=== PATIENT | female | born 1990 | race Caucasian/White ===

== ENCOUNTER 2018-02-19 19:04 | Emergency (ER) | payer MEDICAID ==
[2018-02-19 19:09] VITALS: BP 129/81
--- NOTE | 2018-02-19 19:26 | EDPHY ---
HPI/HX/ROS/PE/MDM Narrative: CHIEF COMPLAINT: Neck and jaw pain. HISTORY OF PRESENT ILLNESS: This patient is a 27 year old female with history of TMJ and sleep apnea complaining of neck and jaw pain. She has followed up with a dentist regarding this, but misplaced her mouthguard about two months ago and has had worsening discomfort in her neck and jaw since that time. She has not replaced this due to prohibitively high costs for a custom dental appliance. She has tried to relieve her pain with marijuana, ibuprofen, and Tylenol. Now, none are relieving her discomfort. She states she has episodes of pain so intense "I'm losing my mind". When she woke this morning, she had a headache, left greater than right. She generally self-medicates with marijuana and tried this. However , her pain worsened. She feels that the pain in her neck is making it difficult for her to speak properly or open her mouth fully. Currently, the discomfort radiates from her neck to all her extremities as well. The pain is usually worse in the mornings. Endorses nausea and feeling unbearably hot and cold. She denies fever, chills, chest pain, shortness of breath, palpitations, vomiting, diarrhea, urinary complaints, lightheadedness. REVIEW OF SYSTEMS: A comprehensive 10 system review of systems is otherwise negative aside from elements mentioned in the history of present illness and medical decision making. PAST MEDICAL HISTORY: TMJ. Sleep Apnea. Tonsillectomy. Anxiety, depression. SOCIAL HISTORY: Friend at bedside. Employed. No alcohol use, illicit drug use. No history of opiate or other prescription drug abuse. Dentists: Dr. Hankins and Dr. Fritz. VITAL SIGNS: Reviewed by me GENERAL: Well-developed, well-nourished, resting comfortably in no respiratory distress. HEENT: Atraumatic. Eyes: No icterus, no injection. Mouth: moist mucous membranes. No erythema or lesions. Patient does have popping of the TMJ joints bilaterally. Mild trismus. Neck: supple with no adenopathy. No meningismus. LUNGS: Clear to auscultation bilaterally, no wheezes, rhonchi or rales. CARDIAC: Regular rate and rhythm, no rubs, murmurs or gallops. ABDOMEN: Soft, nontender, nondistended, bowel sounds normal. BACK: No CVA tenderness. EXTREMITIES: No trauma. No edema. Range of motion is normal throughout. NEURO: Alert and oriented, grossly nonfocal. SKIN: Warm and dry, no rash. PSYCHIATRIC: Normal mentation, no agitation. Portions of this note were transcribed by a medical office supervisor. I personally performed a history, physical exam, medical decision making, and confirmed accuracy of information the transcribed note. ED Course: 27 y/o female presents with jaw and neck pain secondary to TMJ. She complains of worsening pain due to loss of her custom dental appliance. Exam is largely unremarkable. The patient does not appear systemically ill. She understands that there is little we can do in the emergency department to relieve her pain manager intermediate, and plans to follow up with her dentist tomorrow. She is primarily concerned regarding her severe pain and requests assistance with pain management. Plan to discharge home in good condition with prescription for Gabapentin for pain relief. I will provide a pre-pack of Garfield as well to take as needed for severe pain. She understands I cannot provide more narcotics and that she needs to follow up with her dental providers as soon as possible for further management. I encouraged her to acquire a generic night mouth guard, available over the counter, for relief until she follows up with her dentists. Return precautions discussed. She agrees with this plan. MDM: After history was obtained, and the physical exam performed, a differential for headache was considered including, but not limited to, tension headache, musculoskeletal source of the headache, TMJ syndrome, migraine headache, headache from dental caries or dental source. - Data Points Medications Given: Discontinued Medications Hydrocodone Bitart/Acetaminophen (Garfield 5/325mg Prepack#6) 1 btl TAKEHOME EDNOW ONE Stop: 02/19/18 19:33 Last Admin: 02/19/18 19:38 Dose: 1 btl Gabapentin (Neurontin) 300 mg PO EDNOW ONE Stop: 02/19/18 19:30 Last Admin: 02/19/18 19:38 Dose: 300 mg General Time Seen by Provider: 02/19/18 19:11 Initial Vital Signs: Initial Vital Signs Temperature (C) 36.3 C 02/19/18 19:05 Heart Rate 75 02/19/18 19:05 Respiratory Rate 16 02/19/18 19:05 Blood Pressure 129/81 H 02/19/18 19:05 O2 Sat (%) 98 02/19/18 19:05 O2 Delivery Mode Room Air Allergies/Adverse Reactions: No Known Allergies Allergy (Unverified 02/19/18 19:08) Home Medications: Medication Instructions Recorded Gabapentin [Neurontin 300 MG (*)] 300 mg PO TID PRN #30 cap 02/19/18 Zoloft 25mg (*) 02/19/18 Departure - Departure Disposition: Home, Routine, Self-Care Clinical Impression: TMJ dysfunction Condition: Good Instructions: Hydrocodone/Acetaminophen (By mouth), Temporomandibular Disorder (ED) Additional Instructions: 1. Take gabapentin as prescribed. 2. Take Garfield as prescribed as needed for severe pain. 3. You may wish to get a night mouth guard, available over the counter. 4. Follow up with your dentist tomorrow. I recommend Ibuprofen (Motrin, Advil) or Naproxen Sodium (Aleve) for pain and anti-inflammatory effects. You may take either one, but do not take both. Your dose is: Ibuprofen 600 mg every 6-8 hours with food. OR Naproxen Sodium (Aleve) 220 mg every 12 hours. Referrals: Tita Velez DO [Primary Care Provider] - As per Instructions Prescriptions: Gabapentin [Neurontin 300 MG (*)] 300 mg PO TID PRN #30 cap PRN Reason: pain Report Scribed for: Kathia Burris Report Scribed by: Marija Daniels Date of Report: 02/19/18 Time of Report: 19:26
[2018-02-19] MEDS ORDERED: GABAPENTIN 300 MG CAP PO ONE (19:29)
[2018-02-19] MEDS ORDERED: HYDROCOD/APAP 5/325 PREPACK#6 BTL TAKEHOME ONE (19:32)
== END 2018-02-19 19:43 | disposition home or self-care (01) ==
DX: M26.69 Other specified disorders of temporomandibular joint (principal); G47.30 Sleep apnea, unspecified

== ENCOUNTER 2018-03-04 17:34 | Emergency (ER) | payer MEDICAID ==
[2018-03-04 17:40] VITALS: BP 119/49
--- NOTE | 2018-03-04 17:58 | EDPHY ---
HPI/HX/ROS/PE/MDM Narrative: CHIEF COMPLAINT: "I'm just having a lot of pain again;" jaw pain/headache HPI: The patient is a 27 y/o female with a history of TMJ pain and sleep apnea arriving with her friend for the second time in the last 2 weeks complaining of waxing and waning headache and jaw pain. Her headache and jaw pain varies in intensity and "moves around a lot" from her occiput to her forehead and shoulders. She's had these symptoms for about 2 months since losing a mouthguard from her dentist. She was seen here 02/20/16 for a similar complaint and received gabapentin and prepack of F[place] at that time, which she reports has been the most helpful. She's also been smoking CBD and weed and using ibuprofen and acetaminophen with only minimal relief. She followed up with her dentist earlier this week to get another mouthguard and had some imaging performed at that time. Since then she's continued to have varying levels of pain. Symptoms today feel similar to her ongoing TMJ-related pain since losing her mouthguard. She says, "why I'm here is to get more effective medication, something more intense." No weakness, paresthesias, dizziness, vision changes, speech difficulty. REVIEW OF SYSTEMS: A comprehensive 10 system review of systems is otherwise negative aside from elements mentioned in the history of present illness. PMH: TMJ pain, sleep apnea, tonsillectomy, anxiety, depression SOCIAL HISTORY: Friend at bedside. Denies drug abuse. 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 Prior medical records reviewed including ED visit 02/19/18 for the same complaint. PHYSICAL EXAM: General:Patient is alert, in no acute distress. Sitting up, smiling. ENT:Eyes are normal to inspection. ENT inspection normal. No meningismus. Neck: Normal inspection. Full range of motion. Respiratory:No respiratory distress. Breath sounds normal bilaterally. Cardiovascular: Regular rate and rhythm. Strong peripheral pulses. Normal cap refill. Abdomen:The abdomen is nontender to palpation. There are no peritoneal signs. Back: Normal to inspection. No tenderness to palpation. Skin: Normal color. No rash. Warm and dry. Extremities: Normal appearance. Full range of motion. Neuro: Oriented x3. Normal motor function. Normal sensory function. ED Course: 27 y/o female who returns for the second time in the last two weeks complaining of [id number] headaches since losing her mouthguard 2 months ago. She is here requesting more pain medication. Her exam is unremarkable. Doubt neurologic or infectious causes. Discussed options for further investigation of her headache including head CT and she feels confident her symptoms are the same as prior and related to her TMJ dysfunction. She is declining further evaluation for this. Plan for treatment with 30mg IM Toradol here and discharge home with script for Toradol and small prepack of F[place]on. She understands we cannot provide further narcotic prescriptions through the ED for this complaint and will need to follow up with her PCP and dentist for further prescription management. Return precautions discussed. - Data Points Medications Given: Discontinued Medications Hydrocodone Bitart/Acetaminophen ([place] 5/325mg Prepack#6) 1 btl TAKEHOME EDNOW ONE Stop: 03/04/18 18:04 Last Admin: 03/04/18 18:08 Dose: 1 btl Ketorolac Tromethamine (Toradol) 30 mg IM EDNOW ONE Stop: 03/04/18 18:03 Last Admin: 03/04/18 18:08 Dose: 30 mg General Time Seen by Provider: 03/04/18 17:40 Initial Vital Signs: Initial Vital Signs Temperature (C) 36.7 C 03/04/18 17:36 Heart Rate 73 03/04/18 17:36 Respiratory Rate 18 03/04/18 17:36 Blood Pressure 119/49 L 03/04/18 17:36 O2 Sat (%) 92 03/04/18 17:36 O2 Delivery Mode Room Air Allergies/Adverse Reactions: No Known Allergies Allergy (Verified 03/04/18 17:36) Home Medications: Medication Instructions Recorded Gabapentin [Neurontin 300 MG (*)] 300 mg PO TID PRN #30 cap 02/19/18 Zoloft 25mg (*) 02/19/18 Ketorolac Tromethamine 10 mg PO Q6H PRN #16 tab 03/04/18 Departure - Departure Disposition: Home, Routine, Self-Care Clinical Impression: Headache Qualifiers: Headache type: other headache syndrome Qualified Code(s): G44.89 - Other headache syndrome Condition: Good Instructions: General Headache (ED) Additional Instructions: 1. Take Toradol as directed. You received a dose of Toradol here today, so you should hold off on further doses until tomorrow. Do not take ibuprofen while using this medication. 2. You've received a small pack of Fulton to use as prescribed when needed for severe pain. This medication is a narcotic. Please be advised the ED cannot provide further narcotic prescriptions for this complaint. 3. You will need to follow up with your dentist and/or PCP for any further prescriptions related to this complaint. 4. Return to the ED for other worsening of condition. Referrals: Tita Velez DO [Primary Care Provider] - As per Instructions Prescriptions: Ketorolac Tromethamine 10 mg PO Q6H PRN #16 tab PRN Reason: Pain/inflammation Report Scribed for: Jose M Edouard Report Scribed by: Anika Le Date of Report: 03/04/18 Time of Report: 17:58 Physician Review and Approval Statement: Portions of this note were transcribed by an ED scribe. I personally performed the history, physical exam, and medical decision making; and confirm the accuracy of the information in the transcribed note.
[2018-03-04] MEDS ORDERED: KETOROLAC 30 MG/1 ML SDV IM ONE (18:02)
[2018-03-04] MEDS ORDERED: HYDROCOD/APAP 5/325 PREPACK#6 BTL TAKEHOME ONE (18:03)
== END 2018-03-04 18:15 | disposition home or self-care (01) ==
DX: R51 Headache (principal); M26.629 Arthralgia of temporomandibular joint, unspecified side; F12.90 Cannabis use, unspecified, uncomplicated
CPT/HCPCS: J1885

== ENCOUNTER 2018-04-05 04:44 | Emergency (ER) | payer MEDICAID ==
[2018-04-05 04:54] VITALS: BP 96/67
--- NOTE | 2018-04-05 05:03 | EDPHY ---
H & P Stated Complaint: pain, poss hemorrhoid, constipated, "occasional" blood in stool x1wk Time Seen by Provider: 04/05/18 05:03 HPI/ROS: HPI CHIEF COMPLAINT: Rectal pain. Possible hemorrhoid HISTORY OF PRESENT ILLNESS: 27-year-old female, otherwise healthy no significant medical history presents emergency room stating that often times she has hard stools and strains. She presents over the past 3-4 days she has had some rectal pain and pain with bowel movement. She denies fever. Denies abdominal pain. She does report some hard stools. Concerned she may have a hemorrhoid. Past Medical History: Denies medical history Past Surgical History: Denies surgical history Social History: Denies drugs alcohol tobacco. Family History: Noncontributory ROS REVIEW OF SYSTEMS: 10 Systems were reviewed and negative with the exception of the elements mentioned in the history of present illness. Exam Constitutional appears well nontoxic no acute distress, triage nursing summary reviewed, vital signs reviewed, awake/alert. Eyes normal conjunctivae and sclera, EOMI, PERRLA. HENT normal inspection, atraumatic, moist mucus membranes, no epistaxis, neck supple/ no meningismus, no raccoon eyes. Respiratory clear to auscultation bilaterally, normal breath sounds, no respiratory distress, no wheezing. Cardiovascular rate normal, regular rhythm, no murmur, no edema, distal pulses normal. Gastrointestinal rectal exam: At the 4 o'clock position there appears to be Ridge small hemorrhoid and possible anal tear. No abscess. No large mass. soft, non-tender, no rebound, no guarding, normal bowel sounds, no distension, no pulsatile mass. Genitourinary no CVA tenderness. Musculoskeletal no midline vertebral tenderness, full range of motion, no calf swelling, no tenderness of extremities, no meningismus, good pulses, neurovascularly intact. Skin pink, warm, & dry, no rash, skin atraumatic. Neurologic awake, alert and oriented x 3, AAOx3, moves all 4 extremities equally, motor intact, sensory intact, CN II-XII intact, normal cerebellar, normal vision, normal speech. Psychiatric normal mood/affect. Heme/Lymph/Immune no lymphadenopathy. Differential Diagnosis: Includes but is not limited to in a particular order hemorrhoid pain, anal fissure, annular tear Medical Decision Making: Plan for this patient recommend Sitz baths. Recommend hemorrhoidal cream. Recommend follow up with surgery as needed. Return precautions discussed with the patient. Return if worsening rectal pain , bloody stool, not doing well. Source: Patient - Personal History LMP (Females 10-55): 15-21 Days Ago Current Tetanus Diphtheria and Acellular Pertussis (TDAP): Yes - Medical/Surgical History Hx Asthma: No Hx Chronic Respiratory Disease: No Hx Diabetes: No Hx Cardiac Disease: No Hx Renal Disease: No Hx Cirrhosis: No Hx Alcoholism: No Hx HIV/AIDS: No Hx Splenectomy or Spleen Trauma: No Other PMH: TMJ, sleep apnea - Social History Smoking Status: Never smoked Constitutional: Initial Vital Signs Temperature (C) 36.7 C 04/05/18 04:50 Heart Rate 79 04/05/18 04:50 Respiratory Rate 18 04/05/18 04:50 Blood Pressure 96/67 L 04/05/18 04:50 O2 Sat (%) 97 04/05/18 04:50 O2 Delivery Mode Room Air Allergies/Adverse Reactions: No Known Allergies Allergy (Verified 04/05/18 04:50) Home Medications: Medication Instructions Recorded Gabapentin [Neurontin 300 MG (*)] 300 mg PO TID PRN #30 cap 02/19/18 Zoloft 25mg (*) 02/19/18 Ketorolac Tromethamine 10 mg PO Q6H PRN #16 tab 03/04/18 Docusate Sodium [Dulcolax Stool 100 mg PO DAILY #14 capsule 04/05/18 Softener] Hydrocortisone/Pramoxine 1 tyrone [place] TID #1 can 04/05/18 [Proctofoam-Hc Foam] Departure - Departure Disposition: Home, Routine, Self-Care Clinical Impression: Hemorrhoids Condition: Good Instructions: Hemorrhoids (ED), Sitz Bath (DC) Additional Instructions: 1. Warm baths 2 to 3 times a day. 2. Hemorrhoidal cream. 3. Return if worse 4. Follow up with surgery as needed. 5. Do not strain. 6. Stool softeners. Referrals: Tita Velez DO [Primary Care Provider] - As per Instructions Noel Judge MD [Medical Doctor] - As per Instructions Prescriptions: Docusate Sodium [Dulcolax Stool Softener] 100 mg PO DAILY #14 capsule Hydrocortisone/Pramoxine [Proctofoam-Hc Foam] 1 tyrone [place] TID #1 can
== END 2018-04-05 05:29 | disposition home or self-care (01) ==
DX: K64.9 Unspecified hemorrhoids (principal)

== ENCOUNTER 2018-04-05 21:30 | Emergency (ER) | payer MEDICAID ==
--- NOTE | 2018-04-05 21:57 | EDPHY ---
H & P Stated Complaint: SEAN FISSURE, increasing pain, constipated Time Seen by Provider: 04/05/18 22:01 HPI/ROS: HPI CHIEF COMPLAINT: Constipation, rectal pain. HISTORY OF PRESENT ILLNESS: Very pleasant 27-year-old female who I just saw last night for annual facial and hemorrhoid. She states that she has been trying to have a bowel movement she has been very constipated. She feels fullness in her rectum. She states that she tried to use the bathroom multiple times was unable to do so. She feels as if she has to have a bowel movement. Denies fever, denies chest pain, denies shortness of breath, denies abdominal pain, denies vomiting. No blood. She was able to pass hard stools Past Medical History: Denies significant medical history Past Surgical History: denies significant surgical history Social History: Denies drugs alcohol tobacco Family History: Noncontributory ROS REVIEW OF SYSTEMS: 10 Systems were reviewed and negative with the exception of the elements mentioned in the history of present illness. Exam Constitutional triage nursing summary reviewed, vital signs reviewed, awake/ alert. Eyes normal conjunctivae and sclera, EOMI, PERRLA. HENT normal inspection, atraumatic, moist mucus membranes, no epistaxis, neck supple/ no meningismus, no raccoon eyes. Respiratory clear to auscultation bilaterally, normal breath sounds, no respiratory distress, no wheezing. Cardiovascular rate normal, regular rhythm, no murmur, no edema, distal pulses normal. Gastrointestinal soft, non-tender, no rebound, no guarding, normal bowel sounds, no distension, no pulsatile mass. Genitourinary no CVA tenderness. Musculoskeletal no midline vertebral tenderness, full range of motion, no calf swelling, no tenderness of extremities, no meningismus, good pulses, neurovascularly intact. Skin pink, warm, & dry, no rash, skin atraumatic. Neurologic awake, alert and oriented x 3, AAOx3, moves all 4 extremities equally, motor intact, sensory intact, CN II-XII intact, normal cerebellar, normal vision, normal speech. Psychiatric normal mood/affect. Heme/Lymph/Immune no lymphadenopathy. Differential Diagnosis: Includes but is not limited to in a particular order in a fissure, hemorrhoids, fecal impaction, constipation Medical Decision Making: Plan for this patient soap veronqiue enema. Head re- examination. Re-evaluation: [id number]: Patient received a soapsuds enema. Is improved. She had a good bowel movement here in feels much better. She would like to be discharged. Recommend she continues to do warm baths. Recommend Proctofoam. Return precautions discussed return if worsening abdominal pain, rectal pain, fever, vomiting she understands. Source: Patient - Personal History LMP (Females 10-55): 15-21 Days Ago Current Tetanus Diphtheria and Acellular Pertussis (TDAP): Yes - Medical/Surgical History Hx Asthma: No Hx Chronic Respiratory Disease: No Hx Diabetes: No Hx Cardiac Disease: No Hx Renal Disease: No Hx Cirrhosis: No Hx Alcoholism: No Hx HIV/AIDS: No Hx Splenectomy or Spleen Trauma: No Other PMH: TMJ, sleep apnea, anal fissure - Social History Smoking Status: Never smoked Constitutional: Initial Vital Signs Temperature (C) 37.0 C 04/05/18 21:40 Heart Rate 99 04/05/18 21:40 Respiratory Rate 20 04/05/18 21:40 Blood Pressure 101/56 L 04/05/18 21:40 O2 Sat (%) 97 04/05/18 21:40 O2 Delivery Mode Room Air Allergies/Adverse Reactions: No Known Allergies Allergy (Verified 04/05/18 21:42) Home Medications: Medication Instructions Recorded Gabapentin [Neurontin 300 MG (*)] 300 mg PO TID PRN #30 cap 02/19/18 Zoloft 25mg (*) 02/19/18 Ketorolac Tromethamine 10 mg PO Q6H PRN #16 tab 03/04/18 Docusate Sodium [Dulcolax Stool 100 mg PO DAILY #14 capsule 04/05/18 Softener] Hydrocortisone/Pramoxine 1 tyrone [place] TID #1 can 04/05/18 [Proctofoam-Hc Foam] Departure - Departure Disposition: Home, Routine, Self-Care Clinical Impression: Constipation Qualifiers: Constipation type: unspecified constipation type Qualified Code(s): K59.00 - Constipation, unspecified Condition: Good Instructions: Constipation (ED) Referrals: Tita Velez DO [Primary Care Provider] - As per Instructions
[2018-04-05 23:09] VITALS: BP 95/67
== END 2018-04-05 23:10 | disposition home or self-care (01) ==
DX: K59.00 Constipation, unspecified (principal); K62.89 Other specified diseases of anus and rectum

== ENCOUNTER 2018-05-25 03:01 | Inpatient (IN) | payer MEDICAID, OTHER ==
--- NOTE | 2018-05-25 03:22 | EDPHY ---
H & P Stated Complaint: MH eval, manic, anxious, not sleeping Source: Patient, Other - Personal History LMP (Females 10-55): Irregular Current Tetanus Diphtheria and Acellular Pertussis (TDAP): Yes - Medical/Surgical History Hx Asthma: No Hx Chronic Respiratory Disease: No Hx Diabetes: No Hx Cardiac Disease: No Hx Renal Disease: No Hx Cirrhosis: No Hx Alcoholism: No Hx HIV/AIDS: No Hx Splenectomy or Spleen Trauma: No Other PMH: TMJ, sleep apnea, anal fissure, amxiety - Social History Smoking Status: Never smoked Time Seen by Provider: 05/25/18 03:22 HPI/ROS: HPI CHIEF COMPLAINT: Meli, pressured speech, not sleeping HISTORY OF PRESENT ILLNESS: 27-year-old female, history depression, presents emergency room by private vehicle with her friend became concerned about her for possible meli. Patient denies history of bipolar disorder however does have a history of depression. Does state that she was suicidal yesterday but not today. Her friend reports that she has been deleting her Facebook account 7 times over the last 24 hr also reports that "Linda Gonzalez has become friends with her." She arrives to the emergency room smiling and laughing has pressured speech. Speaks very rapidly. Appears to be acutely manic. Denies drug use. Denies homicidal or suicidal ideation currently. Friend at bedside is concerned about her mental well being brought her in. States that she has been somewhat paranoid, pressured speech, in doing odd behaviors. Past Medical History: Depression, anxiety Past Surgical History: No recent surgery Social History: denies drugs alcohol tobacco. Family History: Noncontributory ROS REVIEW OF SYSTEMS: 10 Systems were reviewed and negative with the exception of the elements mentioned in the history of present illness. Exam Constitutional triage nursing summary reviewed, vital signs reviewed, awake/ alert. Eyes normal conjunctivae and sclera, EOMI, PERRLA. HENT normal inspection, atraumatic, moist mucus membranes, no epistaxis, neck supple/ no meningismus, no raccoon eyes. Respiratory clear to auscultation bilaterally, normal breath sounds, no respiratory distress, no wheezing. Cardiovascular rate normal, regular rhythm, no murmur, no edema, distal pulses normal. Gastrointestinal soft, non-tender, no rebound, no guarding, normal bowel sounds, no distension, no pulsatile mass. Genitourinary no CVA tenderness. Musculoskeletal no midline vertebral tenderness, full range of motion, no calf swelling, no tenderness of extremities, no meningismus, good pulses, neurovascularly intact. Skin pink, warm, & dry, no rash, skin atraumatic. Neurologic awake, alert and oriented x 3, AAOx3, moves all 4 extremities equally, motor intact, sensory intact, CN II-XII intact, normal cerebellar, normal vision, normal speech. Psychiatric pressured speech, laughing, smiling, rapid speech appears manic Heme/Lymph/Immune no lymphadenopathy. Differential Diagnosis: Includes but is not limited to in a particular order underlying mood disorder, bipolar disorder, schizophrenia, acute psychosis, acute meli. Medical Decision Making: Plan for this patient blood draw for medical clearance , urine drug screen, I will placed on M1 hold due to her mental state. She will need mental health evaluation. 1 mg p.o. Ativan ordered. Re-evaluation: 0700: No acute events overnight patient resting comfortably. 1 mg Ativan ordered earlier in given. Patient signed over at 7:00 a.m. Shift change to Dr. Rogers. Patient is getting mental evaluation at this time 7:00 a.m.. (Silvio Zimmer) Constitutional: Initial Vital Signs Temperature (C) 36.7 C 05/25/18 03:04 Heart Rate 101 H 05/25/18 03:04 Respiratory Rate 18 05/25/18 03:04 Blood Pressure 114/76 05/25/18 03:04 O2 Sat (%) 97 05/25/18 03:04 O2 Delivery Mode Room Air Allergies/Adverse Reactions: No Known Allergies Allergy (Verified 05/25/18 03:03) Home Medications: Medication Instructions Recorded Cyclobenzaprine [Flexeril 10 MG 10 mg PO HS PRN 05/25/18 (*)] Propranolol HCl [Inderal 20mg (*)] 20 - 40 mg PO DAILY PRN 05/25/18 Sertraline HCl [Zoloft 50mg (*)] 50 mg PO DAILY 05/25/18 Medical Decision Making Care Turn Over: I assumed care of this patient from Dr. Zimmer at 7:00 a.m.. She underwent evaluation and at 8:30 a.m. I was notified that she will be transferred to [address] [place] [address]. EMTALA completed. Transfer will be arranged. (Carmina Rogers) - Data Points Laboratory Results: Laboratory Results 05/25/18 04:00 05/25/18 04:00 05/25/18 05/25/18 04:00 04:00 Hemoglobin A1c Pending Estim Average Glucose Pending Total Bilirubin 0.4 mg/dL mg/dL (0.1-1.4) Conjugated Bilirubin 0.2 mg/dL mg/dL (0.0-0.5) Unconjugated Bilirubin 0.2 mg/dL mg/dL (0.0-1.1) AST 17 IU/L IU/L (14-46) ALT 22 IU/L IU/L (9-52) Alkaline Phosphatase 75 IU/L IU/L (38-126) Total Protein 7.9 g/dL g/dL (6.3-8.2) Albumin 4.7 g/dL g/dL (3.5-5.0) Triglycerides 54 mg/dL mg/dL (35-135) Cholesterol 109 mg/dL L mg/dL (140-200) Cholesterol Risk Factr 0.4 (0.2-1.0) LDL Cholesterol, Calc 50 mg/dL L mg/dL (60-100) LDL Risk Factor 0.4 (0.2-1.0) VLDL Cholesterol 11 mg/dL mg/dL (8-25) Non-HDL Cholesterol 61 mg/dL L mg/dL (90-129) HDL Cholesterol 48 mg/dL mg/dL (40-75) LDL/HDL Ratio 1.05 RATIO RATIO (1.00-3.22) Cholesterol/HDL Ratio 2.27 RATIO RATIO (1.00-4.44) Medications Given: Acetaminophen (Tylenol) 650 mg PO Q4HRS PRN PRN Reason: Pain, Mild Stop: 11/21/18 13:34 Last Admin: 05/25/18 20:30 Dose: 650 mg Lorazepam (Ativan) 0.5 - 1 mg PO Q6HRS PRN PRN Reason: Anxiety, Able to Take PO Stop: 11/21/18 13:34 Last Admin: 05/26/18 08:24 Dose: 1 mg Discontinued Medications Lorazepam (Ativan) 1 mg PO EDNOW ONE Stop: 05/25/18 03:30 Last Admin: 05/25/18 04:00 Dose: 1 mg Departure - Departure Disposition: [facility] IP Clinical Impression: Acute psychosis, Meli Condition: Good
[2018-05-25] MEDS ORDERED: LORazepam 1 MG TAB PO ONE (03:29)
[2018-05-25 04:29] LABS: PLATELET COUNT 250 10^3/uL (150-400)
--- NOTE | 2018-05-25 09:02 | ASMTTCLDSP ---
TLC Discharge Disposition Disposition: Answers: Admit Disposition Notes: Notes: In consultation with [facility] ED Physician, Carmina Rogers MD and on-call [employer], Maycol Foster both concurred that pt appears to meet 27-65 criteria regarding psychiatric hospitalization as pt appears to be at risk of harm to self due to a mental illness condition. Pt was given the 3[facility] prohibited belongings list while in the ED. Discharge Concerns/Recommendations: Notes: Pt will be admitted to [facility] Was patient given the Answers: Yes Inpatient Behavioral Health Prohibited Belongings List while in the ED? For inpatient Maycol Gomez admission, the following psychiatrist agreed to accept patient for admission to Behavioral Health ([facility]): Type of Hold: Answers: M1/72-hour Hold Hold initiated by: Answers: ED Physician Date Signed: 05/25/2018 09:02 AM Electronically Signed By:Lisa Queen
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
--- NOTE | 2018-05-25 10:14 | PDCONSULT ---
Document Advisor Note: Chief complaint: "I had a suicidal thought yesterday" HPI: This is a 27yo F with a history of depression and anxiety who presents at the urging of her friends and roommate due to concerns for manic behavior. She reportedly has been acting more erratic for the last few days. She had one suicidal thought yesterday and spoke with a friend about this and those ideations resolved. She currently denies SI or HI. She denies any recent fevers , chills, weight loss, sweats, cough, shortness of breath, rashes, neck stiffness, nausea, vomiting, diarrhea. She has been taking 50mg of sertraline daily (reduced from 100mg a few months ago). She states that she knows that she "needs help." In the ED, she was noted to be demonstrating manic features with pressured speech and agitation. An M1 hold was placed and she will be admitted over at the [facility]. Past Medical History: TMJ, anal fissure/hemorrhoid, depression, anxiety Past Surgical History: tonsillectomy Medications: sertraline 50mg daily Allergies: NKDA Social History: Lives with male roommate, who is in room. Denies tobacco, etoh, illicits. Family History: none pertinent ROS: 10 point review of systems negative except as outlined in HPI. Vitals: Temp 36.7, BP 114/76, HR 101, RR 18, O2 97% on room air Physical Exam: gen - rapid speech, intermittently agitated but at other times pleasant; heent - no thyromegaly or thyroid nodules; eyes - no ophthalmous or lid lag; cv - tachycardic without m/r/g; lungs - clear; abdomen - soft without organomegaly; skin - no rashes; neuro - no focal deficits; psych - as above Labs: Reviewed. CBC, BMP normal. Negative beta HCG. Utox + for marijauana. Etoh negative. Assessment: 27yo F with depression/anxiety here with symptoms consistent with acute meli. Plan: 1. Acute manic episode - M1 hold placed, plan to admit at [facility] - This appears to be her first episode of such - Check TSH 2. Tachycardia: Regular on exam - Likely driven by #1 - Very low concern for PE, no indication for CTA chest 3. Depression/anxiety: On sertraline at home, continue per psych. 4. Hemorrhoids: Hemoglobin level is normal, not active issue. VTE ppx: ambulation Diet: regular Code: full Dispo: Admit under M1 hold at [facility].
[2018-05-25] MEDS ORDERED: MAG HYDROX/AL HYDROX/SIMETH 30 ML UDCUP PO PRN (13:35)
[2018-05-25] MEDS: ACETAMINOPHEN 325 MG TAB PO PRN (20:30)
[2018-05-26] MEDS: LORazepam 0.5 MG TAB PO PRN (08:24)
--- NOTE | 2018-05-26 13:48 | ASMTBHMTP ---
Master Treatment Plan Master Treatment Plan Answers: Mood Instability without for: Psychosis Date: 05/26/2018 Diagnosis on Admission: Generalized Anxiety Disorder 300.02 Expected length of stay: 3-5 Days Reason for admission: Notes: Per TLC Evaluation - Pt. is a 27 year old single, Duc/ female who self presented to the [facility] ED with a friend due to concerns of meli. Pt. has a hx of depression but never diagnosed with bipolar disorder. She reported upon arrival that 2 days ago she was experiencing suicidal thoughts. Pt. had denied SI when presenting initially to the ED. Upon arrival it was noted pt had pressured speech and was speaking rapidly. Pt. presented to the ED at 03:31. Her TLC evaluation was started at 06:15am on 05/25/18. Pt. was placed on a M1 hold by ED Physician due to her mental stated. Pt. was given 1 mg of Ativan upon arrival. Pt's utox was positive for marijuana. Pt. has never seen a psychiatrist. Her medication were prescribed by her PCP, Tita Velez MD. Pt. had reported she started taking Zoloft a few years ago. Patient's stated presenting problems: Notes: Pt. declined to respond Patient's goals for treatment: Notes: Pt. declined to respond Patient's strengths: Notes: Pt. declined to respond Identify supports outside of hospital: Notes: Pt. declined to respond Discharge criteria: Notes: Patient will demonstrate more stable mood by discharge. Initial disposition plan/considerations: Notes: Pt. declined to respond Master Treatment Plan Required Signatures Psychiatrist signature: Answers: Eric Waite MD: RN on-shift signature: Answers: RN: Patient signature: Answers: Patient: Date Signed: 05/26/2018 01:47 PM Electronically Signed By:Mar Machuca
--- NOTE | 2018-05-26 14:17 | ASMTCMCOM ---
CM Note CM Note Notes: Pt requested to be called "Christina". Pt. refused to speak with CC. Pt. needed to be redirected a few times this morning from standing in a staff only area. Pt. is withdrawn to her room. Staff report pt. sleeping 3.5 hours and not taking any medications at this time. Date Signed: 05/26/2018 02:16 PM Electronically Signed By:Mar Machuca
--- NOTE | 2018-05-26 17:49 | BAPA ---
DATE OF SERVICE: 05/26/2018 CHIEF COMPLAINT: "Maycol wanted me to come in because I was asking too strongly. I wanted to prove to him I wasn't losing my mind. Many things are stressful, which has to do with honesty and boundaries." HISTORY OF PRESENT ILLNESS: The patient is a 27-year-old, single, Duc female, who self-presented to the [facility] ED with her friend, Maycol, at his request. Maycol was concerned that the patient had been acting strangely and was engaging in bizarre behavior and making strange statements. The patient has a history of depression and anxiety. Previously prescribed sertraline for depression, and propranolol p.r.n. for anxiety. The patient told the it project lead in the emergency department that 2 days prior to her ED visit, she had been experiencing suicidal thoughts. However, she denied having thoughts, plans, or intents to hurt herself or anyone else, when she was evaluated in the emergency department. The ED physician who evaluated the patient noted that the patient had pressured speech and racing thoughts. [facility] it project lead said that she was speaking rapidly. However, when this MD saw the patient on the inpatient [facility] Unit on [address] [place] [address], she was extremely guarded, defensive, withdrawn, isolating. She was sitting on the floor in the starr wearing a hoodie with the lopez pulled up over her face, downcast gaze, not making eye contact or looking at anyone else on the unit. She was wrapped in a blanket. Initially, she did not want to engage with the MD, did not look up when he approached her, refused to answer any questions, then she would shake her head yes or no to some general questions. Eventually, the patient did start speaking more spontaneously and fluently. She did answer questions appropriately. Asked the MD his name, ask for the MD's full name. Said "thank you. It's nice to me you. " Patient also was able to list 2 of her medications, including sertraline and propranolol. Gave accurate doses and dosing schedules for both medications. So , it seemed that the patient's initial presentation was due to selective mutism , and not due to an inability to formulate thoughts. There was no evidence of thought blocking, although she does seem to still be paranoid and somewhat guarded and unwilling to fully engage staff or MD in conversation. When MD asked the patient, she denied experiencing auditory or visual hallucinations. She denied feeling fearful, scared, or paranoid. She denied intrusive thoughts , ideas of reference. She denied any command hallucinations. There was also no evidence of meli. The patient did not have pressured speech or racing thoughts at the time at this MD's evaluation. She did not have increase goal- directed activity, decreased need for sleep. She did not have elevated or elated mood grandiose delusions. She was not engaging in any reckless or impulsive behaviors. PAST PSYCHIATRIC HISTORY: The patient has no prior history of psychiatric hospitalizations. She does have history of some counseling in the past, but it is unclear about how long ago she engaged in therapy. She had been diagnosed with depression and anxiety by her PCP, Tita Velez MD, who had been prescribing sertraline and propranolol, for an unknown period of time. The patient admits that she has not been fully compliant with her medications. In fact, when MD ask her how recently she has taken the propranolol, she said it has been greater than a week since she has used it. She said she only ever used it as needed. When the MD asked the patient how often she has been taking her sertraline, she said she takes it "most days," but she also states, "I forget sometimes and miss doses." When MD asked the patient if she has taken the sertraline this past week, she said, "I don't know." The patient denies any prior suicide attempts. She has no history of self-harm behaviors, although she did report to the [facility] it project lead that she does have a history of binge eating and sometimes restricting, but does not give any indication about how recent those behaviors were. ALLERGIES: The patient has no known drug allergies. CURRENT MEDICATIONS: The patient is currently prescribed sertraline 50 mg p.o. daily, unknown last dose; propranolol 20 mg p.o. daily p.r.n., unknown last dose ; Flexeril 10 mg p.o. at bedtime. States that her last dose was on May 18. [facility] records indicate that the patient also reported taking gabapentin 300 mg p.o. 3 times daily p.r.n., but the pharmacy was unable to confirm that prescription. LABS: Were done in the [facility] ED. Her white cell count was 5.97, hemoglobin 14.5, hematocrit 42.6, platelet count 250, sodium 142, potassium 3.5 , chloride 108, BUN 5, creatinine 0.6, glucose 95, calcium 9.9, total bilirubin 0.4, AST 17, ALT 22, alkaline phosphatase 75, total protein 7.9, triglycerides 54, cholesterol 109, TSH 1.450. Beta hCG was negative. Urine drug screen was positive for marijuana. Negative for all other drugs of abuse. Ethyl alcohol level was undetected. PAST MEDICAL HISTORY: The patient denies any recent surgeries or medical problems. She does have a prior history of sleep apnea, anal fissure. She had multiple ED visits in 2018, for anal fissure, constipation, neck pain, chronic headaches. SOCIAL HISTORY: The patient's parents were never . Her father lives in [place], she has no contact with him. Her mother and brother live on the [facility]. Patient recently relocated from [place] to [place] a few years ago. She is currently living with a former boyfriend, who is now just her roommate, Maycol. She is single, never , has no children. She states that she has been in a relationship with someone other than Maycol, and that recently ended. The patient graduated from the [employer] with a degree in human ecology , but she is not working currently in a job in her field. She has had 2 [employer] jobs. However, she quit both of them the day prior to admission. 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 FAMILY HISTORY: The patient states her father is an alcoholic. The patient states that she thinks her mother has mental illness, but says that she has never been diagnosed or treated. She denies any other family history of mental illness or substance use. SUBSTANCE USE DISORDER: Patient states that she has been using marijuana for several years. She says that she has been using marijuana more often recently. She says over the past few months, she has been using daily. Says that she has been using multiple times a day. Her roommate admits that she seems to have become more paranoid and to have trouble with impaired reality testing, talking strangely, and engaging in bizarre behavior. According to her roommate , she has been "excessively posting on Facebook with no filter." She also believes that someone had been setting up a fake account in her name. Roommate also says that many of these odd behaviors have been increasing over the past few months, and she started using marijuana on a daily basis. Roommate noted disorganized thinking, impulsive behaviors, such as quitting her job, shaving her head, mistrustful of others, erratic sleep. TRAUMA HISTORY: The patient does not report any history of sexual, physical, or emotional abuse. LEGAL HISTORY: Patient denies any arrests or any legal problems. MENTAL STATUS EXAMINATION: This is a small, petite, female sitting on the floor in the hallway, wearing a hoodie with the lopez pulled up, wrapped in a blanket, avoiding eye contact. She is alert and oriented x1. She is very guarded and withdrawn. She makes poor eye contact. Speech rate and volume are slow and soft. She is initially mute, does not respond to any questions, except by shaking her head, but eventually does start talking in complete sentences. Her intellectual function appears to be average, based upon her educational history and prior report. She denies feeling sad, helpless, hopeless, worthless, or anxious. She denies currently experiencing auditory or visual hallucinations. She denied paranoid delusions, ideas of reference, and bizarre thoughts. However, those are presenting symptoms reported by her roommate, is worsening over the last several months, and especially over the last few days. The patient does not currently have any signs or symptoms of meli. She does not have increase in goal-directed activity, decreased need for sleep, racing thoughts, pressured speech, grandiose delusions, or elevated or elated mood. She denies any thoughts or plans to hurt herself or anyone else. Her thought process is illogical, but difficult to assess due to selective mutism. Her insight and judgment both appear to be impaired, as evidenced by her recent behaviors including shaving her head and quitting her job. IMPRESSION: 1. Substance-induced psychotic disorder. 2. Depression by history. 3. Cannabis use disorder, severe. 4. Lack of social support. Patient recently quit 2 jobs. The patient has not been able to find employment in her professional area. Patient's family lives on the [facility]. She is isolated, lonely. Significant recent increase in marijuana use. PLAN: 1. Admit to the inpatient Behavioral Health Services Unit on an M1 hold. 2. Monitor closely for safety. Patient is not currently exhibiting any signs of unsafe behavior. She is acting appropriately. She denies any thoughts, plans, or intent to hurt herself or anyone else. 3. We will continue to monitor and observe the patient. The patient is withdrawn, guarded, likely is still experiencing paranoid delusions. Per the patient's roommate, he noted significant change in her behavior over the last several months, as she started increased marijuana use to several times a day, when she had not been a heavy marijuana user in the past, according to her roommate, who is her ex-boyfriend. He states that he noticed mood lability, lack of sleep, erratic behaviors, disorganized thinking, impulsivity, mistrust of others, paranoia, obsessive Facebook use, all of which he said occurred the same time that she started smoking marijuana daily. The mood and personality changes, her roommate, Maycol, noticed were correlated with her marijuana use. That is why it is most likely that her current presentation is due to a substance-induced psychotic disorder, and not to an underlying mood or schizophreniform disorder, as she has not exhibited any of these symptoms in the past when she was not smoking marijuana. 4. We will prescribe olanzapine 10 mg p.o. at bedtime to address the residual symptoms of substance-induced psychosis. We will hold all the patient's other medications, as she has not been taking those medications regularly anyway, and she is not currently presenting with symptoms of depression or anxiety. 5. Estimated length of stay is 3-5 days. Hopefully, as the patient does not have access to any mood-altering substances while she is in a controlled environment, her symptoms will kenya as she goes longer without any marijuana in her system. We will continue to prescribe antipsychotic medications, as long as it seems to be beneficial, but it is likely that once the patient's symptoms resolve, she will not need to be maintained on antipsychotic medications, unless the symptoms recur. /[id number]/MODL MTDD
[2018-05-26] MEDS: OLANZapine DISINTEGR 10 MG TAB PO SCH (22:06)
[2018-05-27] MEDS: OLANZapine DISINTEGR 5 MG TAB PO PRN ×2 (01:41→23:49)
[2018-05-27] MEDS: LORazepam 0.5 MG TAB PO PRN ×2 (01:41→23:49)
[2018-05-27] MEDS: MAGNESIUM HYDROXIDE 30 ML UDCUP PO PRN (11:12)
--- NOTE | 2018-05-27 15:32 | ASMTCMCOM ---
CM Note CM Note Notes: Pt. requested to speak inside her room. Pt. reports feeling "okay". Pt. stated she slept "medium". Pt. reports getting enough to eat. Pt. stated she took medication, adding "feel little light headed from not eating". Pt. reports attending groups. Pt. stated she "sometimes feel fear". Pt. stated she does have some paranoia, adding "inabilit to relax". Pt. stated "had a really hard time relaxing in this place" adding "everything here is public". Pt. discussed being on camera all the time. CC informed pt. there are no cameras in her room and showed pt. where the cameras are. Pt. stated she lives with a roommate. Pt. stated she is "learning to feel safe where ever I am." Pt. stated she has " a lot of sadness and grief in my heard" and began to cry. Pt. stated "being here learning to clam down and being at peace". Pt. shared she "feel very vunerable". Pt. denied SI, HI, AVH and paranoia. Pt. repeatedly stated she is trying to be honest with everyone and is willing to talk to anyone on the unit. Pt. presents as alert, very guarded, disorganized, good eye contact, and mostly cooperative. Staff report pt. sleeping 8.5 hours and being medication compliant. Staff report pt. having increased anxiety and crying at times. Date Signed: 05/27/2018 03:31 PM Electronically Signed By:Mar Machuca
--- NOTE | 2018-05-27 17:50 | SOAPPROG ---
SOAP Progress Note Assessment/Plan: Assessment: 27 yo woman came to ED at friend's suggestion b/c she had been acting erratically and doing bizarre things like shaving her hair, quitting 2 jobs and changing Facebook posts > 70 times. Plan: 05/27/18 17:47 1. Patient guarded and defensive. Afraid of cameras in rooms and doesn't want to talk to provider in hallway. 2. Patient refused Olanzapine last night, but took PRN dose at 0141 this AM. 3. Patient had increased sleep (8.5 hrs) after taking Olanzapine dose. 4. Place on [facility] Subjective: Patient very labile, crying and tearful this AM. She also presented very guarded and reluctant to talk to staff d/t fears about being watched and worried there are cameras in her room. This afternoon, patient was less labile and more engaged. She interacted with peers rolling ball down hallway. She also initiated brief conversation with MD after being very withdrawn this AM. Objective: Vital Signs Temp Pulse Resp BP Pulse Ox 36.6 C 73 16 140/83 H 95 05/27/18 06:00 05/27/18 06:00 05/27/18 06:00 05/27/18 06:00 05/27/18 06:00 MSE: Affect: Labile, crying at times, constricted at times Mood: "OK" TP: Disorganized TC: Paucity of speech, denies SI/HI Perception: Denies any AH/VH , internally preoccupied at times Insight/Judgment: Impaired - Time Spent With Patient Time Spent With Patient: 15" - Pending Discharge Pending Discharge Within 24 Hours: No Pending Discharge Within 48 Hours: No ICD10 Worksheet Patient Problems: Problems Problem Status Onset Acute psychosis Acute Gabbi Acute
[2018-05-27] MEDS: OLANZapine DISINTEGR 10 MG TAB PO SCH (21:11)
--- NOTE | 2018-05-28 07:40 | SOAPPROG ---
SOAP Progress Note Assessment/Plan: Assessment: Unspecified Psychosis. Cannabis Use Disorder, Severe. R/O substance induced psychosis. No improvement noted. (see subjective/objective note). Patient is not safe to discharge at this time as patient continues to exhibit signs of psychosis, and express psychosis symptoms. Patient requires continued inpatient care because of current psychosis, and requires inpatient level of care to stabilize in order to no longer be gravely disabled due to mental illness. Due to patients current, acute state (notably paranoia) she is unable to communicate her basic needs and requires direction and prompting from staff to perform ADLs. Patient is unable to communicate her basic needs. Patient exhibits inability to provide for herself, neglecting self-care, withdrawn from social interactions, currently shows inability to maintain any appropriate aspect of personal responsibility as an adult, and no current support system identified for patient to manage functional impairment at lower level of care. Patient could benefit from continued inpatient hospitalization for crisis stabilization, safety, and medication evaluation. Plan: 1. Psychotropic medications: After reviewing options, risks, and benefits patient agrees to continue current medications with following changes: lower Zyprexa to 5 mg po QHS due to orthostatic hypotension after receiving 10 mg po QHS last night. No other medication changes at this time as more time is needed to determine ongoing tolerability and efficacy. Plan is to continue to observe patient for response and side effects from medications, and ongoing monitoring and evaluation. 2. Review with patient informed consent and recommendations for psychotropic medication treatment listed below 3. Labs: no additional labs at this time 4. Therapy: continue milieu and group therapy 5. Further investigation including gathering information from patients relatives and review of past case records to inform treatment plan. 6. Safety/Wellness plan and follow-up outpatient appointments to be established prior to discharge. Next steps are for patient to meet with point of care specialist to plan a safe discharge plan and establish outpatient services for ongoing treatment. 7. Confer with inpatient treatment team regarding treatment plan. 8. Psychosocial stressors addressed through shoe caser 9. Legal status: [facility] 10. Consider discharge next week if patient is in stable condition, safe, and has a safe discharge plan. 11. Substance abuse interventions: cannabis PSYCHOTROPIC MEDICATION TREATMENT INFORMED CONSENT and RECOMMENDATIONS: Review nature of condition, diagnosis, and prognosis. Review nature and purpose of psychotropic medication treatment. Review type of psychotropic medications being ordered. Review risk and benefits of psychotropic medication treatment. Review probable length of time patient will need to take medications. Review risk and benefits of not undergoing psychotropic medication treatment. Review alternative treatments to psychotropic medications. Review psychotropic medications contraindications, drug-drug interactions, side effects, and importance of reporting any side effects to a psychiatric provider or nurse during inpatient hospitalization, and upon discharge to patients psychiatric outpatient provider, primary care provider, or other health occasional caregiver. Review importance of asking a nurse, psychiatric provider, or primary care provider any questions or problems concerning the psychotropic medications. Verify patient understands the information that has been provided, and understands, accepts, and agrees to psychotropic medications. Review patients safety plan and importance of patient to report to staff while hospitalized if patient is ever a danger to self/others, or unable to care for self, and upon discharge, the importance for patient to contact [facility] or [facility], or go to the nearest emergency room, if patient is ever a danger to self/others, or unable to care for self. Recommend that upon discharge patient establish medication management treatment with a psychiatric provider, establishes routine therapy appointments, and follow-up with primary care provider. Verify patient understands and agrees to these recommendations. 05/28/18 07:38 Subjective: Following up with patient for evaluation of psychosis and safety. Patient reports, "Doing so much better. Am here for anxiety and depression, feeling better." Patient expresses the following psychiatric symptoms "some paranoia still about not trusting certain people out there." Patient does not report undesirable side effects from current medications, and agrees to continue current medications. Patient agrees to lower Zyprexa to 5 mg po QHS due to orthostatic hypotension after receiving 10 mg po QHS last night. Objective: Vital Signs Temp Pulse Resp BP Pulse Ox 36.2 C 67 12 105/66 96 05/27/18 23:50 05/28/18 06:00 05/27/18 23:50 05/28/18 06:00 05/28/18 01:40 NURSING REPORT: Consulted with nursing for update on patients progress in treatment. Nurses report patient is not engaged in treatment, is not attending groups, slept 5 hours, expresses the following psychiatric symptoms: paranoia; exhibits the following psychiatric symptoms: paranoid, withdrawn, and guarded; is eating all meals, is agreeable to medications and taking as prescribed with no report of side effects, with no s/s of EPS/akathisia, and denies SI/HI, denies A/V hallucinations, and reports delusions. Nurses report patient has standing by door last night asking to leave, then patient had syncopal episode with low blood pressure. Patient requires prompting and direction from staff for ADLs and is unable to communicate her basic needs. MD REPORT FROM WEEKEND: paranoid, withdrawn, and guarded. MSE: The patient is a well-nourished female looking stated chronological age. Attire is appropriate and dress is casual. Grooming status is appropriate. Ambulation is independent. Gait is normal and coordinated. Posture is normal and relaxed. Eye contact is appropriate. Motor activity is appropriate with purposeful, organized, coordinated movements; with no involuntary movements. Attitude is uncooperative, at times guarded. Patient appears distracted and does not relate well to this interviewer. Language production is spontaneous. R/R/V are normal. Patient reports mood as okay with incongruent and expansive affect. Patients thought process is disorganized, tangential, nonsensical, illogical, and non-linear. Patient does not report suicidal/homicidal thoughts , ideas, or plans. Patient denies auditory, visual hallucinations. Patient reports paranoid delusions. Patient does not appear to be attending to internal stimuli. Patients attention and concentration are poor. Patient is oriented to person, place. Patients insight and judgment poor. SUBSTANCE ABUSE BRIEF INTERVENTION: Brief intervention regarding the risks of cannabis abuse is provided to patient with goal to reduce the risk of harm that could result from the continued use of cannabis, with the general aim to investigate the problem, raise awareness of problem, develop a solution with the patient, recommend a specific change or activity, and motivate the patient toward change. Assess substance abuse behavior and give supportive advice about harm reduction, recommend a reduction in hazardous/at-risk consumption patterns, and facilitate referrals for additional specialized treatment with certified caregiver. Intermediate goal is for the patient to quit and attend outpatient substance abuse treatment. Intervention focus on intermediate goals to allow for more immediate success in the treatment process to keep the patient motivated. Review following with patient: Cannabis use risks: Short- term use: impaired short-term memory, impaired motor coordination, altered judgement, in high doses paranoia and psychosis. Long-term use addiction, diminished life satisfaction and achievement, symptoms of chronic bronchitis, and increased risk of chronic psychosis disorders if predisposition to such disorders. In withdrawal anger, aggression irritability, anxiety and nervousness, decreased appetite or weight loss, restlessness, and sleep difficulties with strange dreams. OUTPATIENT SUBSTANCE ABUSE TREATMENT: Patient referred to outpatient provider and treatment for continued treatment related to substance abuse. - Time Spent With Patient Time Spent With Patient: 15 minutes, met with patient individually. - Pending Discharge Pending Discharge Within 24 Hours: No Pending Discharge Within 48 Hours: No ICD10 Worksheet Patient Problems: Problems Problem Status Onset Acute psychosis Acute Gabbi Acute
[2018-05-28] MEDS: OLANZapine DISINTEGR 5 MG TAB PO SCH (20:15)
[2018-05-29] MEDS: LORazepam 0.5 MG TAB PO PRN ×2 (04:49→10:58)
[2018-05-29] MEDS: ACETAMINOPHEN 325 MG TAB PO PRN ×2 (04:49→08:41)
--- NOTE | 2018-05-29 08:17 | SOAPPROG ---
SOAP Progress Note Assessment/Plan: Assessment: Unspecified Psychosis. Cannabis Use Disorder, Severe. R/O substance induced psychosis. No improvement noted. (see subjective/objective note). Patient is not safe to discharge at this time as patient continues to exhibit signs of psychosis, and express psychosis symptoms. Patient requires continued inpatient care because of current psychosis, and requires inpatient level of care to stabilize in order to no longer be gravely disabled due to mental illness. Due to patients current, acute psychosis she is unable to communicate her basic needs and requires direction and prompting from staff to perform ADLs. Patient exhibits inability to provide for herself, neglecting self-care, withdrawn from social interactions, currently shows inability to maintain any appropriate aspect of personal responsibility as an adult, and no current support system for patient to manage functional impairment at lower level of care. Patient could benefit from continued inpatient hospitalization for crisis stabilization, safety, and medication evaluation. Plan: 1. Psychotropic medications: After reviewing options, risks, and benefits patient agrees to continue current medications. No medication changes at this time as more time is needed to determine ongoing tolerability and efficacy. Plan is to continue to observe patient for response and side effects from medications, and ongoing monitoring and evaluation. 2. Review with patient informed consent and recommendations for psychotropic medication treatment listed below 3. Labs: no additional labs at this time 4. Therapy: continue milieu and group therapy 5. Further investigation including gathering information from patients relatives and review of past case records to inform treatment plan. 6. Safety/Wellness plan and follow-up outpatient appointments to be established prior to discharge. Next steps are for patient to meet with child care associate teacher to plan a safe discharge plan and establish outpatient services for ongoing treatment. 7. Confer with inpatient treatment team regarding treatment plan. 8. Psychosocial stressors addressed through complex case manager 9. Legal status: [facility] 10. Consider discharge next week if patient is in stable condition, safe, and has a safe discharge plan. 11. Substance abuse interventions: cannabis PSYCHOTROPIC MEDICATION TREATMENT INFORMED CONSENT and RECOMMENDATIONS: Review nature of condition, diagnosis, and prognosis. Review nature and purpose of psychotropic medication treatment. Review type of psychotropic medications being ordered. Review risk and benefits of psychotropic medication treatment. Review probable length of time patient will need to take medications. Review risk and benefits of not undergoing psychotropic medication treatment. Review alternative treatments to psychotropic medications. Review psychotropic medications contraindications, drug-drug interactions, side effects, and importance of reporting any side effects to a psychiatric provider or nurse during inpatient hospitalization, and upon discharge to patients psychiatric outpatient provider, primary care provider, or other health child care director. Review importance of asking a nurse, psychiatric provider, or primary care provider any questions or problems concerning the psychotropic medications. Verify patient understands the information that has been provided, and understands, accepts, and agrees to psychotropic medications. Review patients safety plan and importance of patient to report to staff while hospitalized if patient is ever a danger to self/others, or unable to care for self, and upon discharge, the importance for patient to contact [facility] or [facility], or go to the nearest emergency room, if patient is ever a danger to self/others, or unable to care for self. Recommend that upon discharge patient establish medication management treatment with a psychiatric provider, establishes routine therapy appointments, and follow-up with primary care provider. Verify patient understands and agrees to these recommendations. 05/29/18 08:17 Subjective: Following up with patient for evaluation of psychosis and safety. Patient reports, "Not sure what I am thinking right now. Haven't had time to think about thoughts yet." Patient expresses the following psychiatric symptoms "anxious." Patient does not report undesirable side effects from current medications, and agrees to continue current medications. Objective: Vital Signs Temp Pulse Resp BP Pulse Ox 36.6 C 85 15 118/69 99 05/29/18 06:00 05/29/18 06:00 05/29/18 06:00 05/29/18 06:00 05/29/18 06:00 NURSING REPORT: Consulted with nursing for update on patients progress in treatment. Nurses report patient is not engaged in treatment, is not attending groups, slept 8 hours, expresses the following psychiatric symptoms: paranoia; exhibits the following psychiatric symptoms: paranoid, withdrawn, guarded, becomes extremely anxious when asked questions; is eating all meals, is agreeable to medications and taking as prescribed with no report of side effects , with no s/s of EPS/akathisia, and denies SI/HI, denies A/V hallucinations, and reports delusions. Patient requires prompting and direction from staff for ADLs and is unable to communicate her basic needs. MD REPORT FROM WEEKEND: paranoid, withdrawn, and guarded. MSE: The patient is a well-nourished female looking stated chronological age. Attire is appropriate and dress is casual. Grooming status is appropriate. Ambulation is independent. Gait is normal and coordinated. Posture is normal and relaxed. Eye contact is appropriate. Motor activity is appropriate with purposeful, organized, coordinated movements; with no involuntary movements. Attitude is uncooperative, at times guarded. Patient appears distracted and does not relate well to this interviewer. Language production is spontaneous. Rate is hesitant, latency of response is prolonged, monotone, with low volume. Patient reports mood as okay with incongruent and flat affect. Patients thought process is blocked, disorganized, nonsensical, illogical, and non- linear. Patient does not report suicidal/homicidal thoughts, ideas, or plans. Patient denies auditory, visual hallucinations. Patient reports paranoid delusions. Patient does not appear to be attending to internal stimuli. Patients attention and concentration are poor. Patient is oriented to person, place. Patients insight and judgment poor. SUBSTANCE ABUSE BRIEF INTERVENTION: Brief intervention regarding the risks of cannabis abuse is provided to patient with goal to reduce the risk of harm that could result from the continued use of cannabis, with the general aim to investigate the problem, raise awareness of problem, develop a solution with the patient, recommend a specific change or activity, and motivate the patient toward change. Assess substance abuse behavior and give supportive advice about harm reduction, recommend a reduction in hazardous/at-risk consumption patterns, and facilitate referrals for additional specialized treatment with healthcare administration internship. Intermediate goal is for the patient to quit and attend outpatient substance abuse treatment. Intervention focus on intermediate goals to allow for more immediate success in the treatment process to keep the patient motivated. Review following with patient: Cannabis use risks: Short- term use: impaired short-term memory, impaired motor coordination, altered judgement, in high doses paranoia and psychosis. Long-term use addiction, diminished life satisfaction and achievement, symptoms of chronic bronchitis, and increased risk of chronic psychosis disorders if predisposition to such disorders. In withdrawal anger, aggression irritability, anxiety and nervousness, decreased appetite or weight loss, restlessness, and sleep difficulties with strange dreams. OUTPATIENT SUBSTANCE ABUSE TREATMENT: Patient referred to outpatient provider and treatment for continued treatment related to substance abuse. - Time Spent With Patient Time Spent With Patient: 15 minutes, met with patient individually. - Pending Discharge Pending Discharge Within 24 Hours: No Pending Discharge Within 48 Hours: No ICD10 Worksheet Patient Problems: Problems Problem Status Onset Acute psychosis Acute Gabbi Acute
[2018-05-29] MEDS: OLANZapine DISINTEGR 5 MG TAB PO PRN (09:56)
[2018-05-29] MEDS: IBUPROFEN 200 MG TAB PO PRN (13:48)
[2018-05-29] MEDS: MAGNESIUM HYDROXIDE 30 ML UDCUP PO PRN (18:40)
[2018-05-29] MEDS: OLANZapine DISINTEGR 5 MG TAB PO SCH (20:38)
[2018-05-30] MEDS: ACETAMINOPHEN 325 MG TAB PO PRN (04:26)
[2018-05-30] MEDS: LORazepam 0.5 MG TAB PO PRN (04:26)
--- NOTE | 2018-05-30 07:20 | SOAPPROG ---
SOAP Progress Note Assessment/Plan: Assessment: Cannabis Use Disorder, Severe. R/O substance induced psychosis, substance induced mood disorder. No improvement noted. (see subjective/objective note). Patient is not safe to discharge at this time as patient continues to exhibit signs of psychosis, and express psychosis symptoms. Patient requires continued inpatient care because of current psychosis, and requires inpatient level of care to stabilize in order to no longer be gravely disabled due to mental illness. Due to patients current, acute psychosis she is unable to communicate her basic needs and requires direction and prompting from staff to perform ADLs. Patient exhibits inability to provide for herself, neglecting self-care, withdrawn from social interactions, currently shows inability to maintain any appropriate aspect of personal responsibility as an adult, and no current support system for patient to manage functional impairment at lower level of care. Patient could benefit from continued inpatient hospitalization for crisis stabilization, safety, and medication evaluation. Plan: 1. Psychotropic medications: After reviewing options, risks, and benefits patient agrees to continue current medications and agrees to increase Zyprexa Zydis to 10 mg po QHS. No other medication changes at this time as more time is needed to determine ongoing tolerability and efficacy. Plan is to continue to observe patient for response and side effects from medications, and ongoing monitoring and evaluation. 2. Review with patient informed consent and recommendations for psychotropic medication treatment listed below 3. Labs: no additional labs at this time 4. Therapy: continue milieu and group therapy 5. Further investigation including gathering information from patients relatives and review of past case records to inform treatment plan. 6. Safety/Wellness plan and follow-up outpatient appointments to be established prior to discharge. Next steps are for patient to meet with caretaker to plan a safe discharge plan and establish outpatient services for ongoing treatment. 7. Confer with inpatient treatment team regarding treatment plan. 8. Psychosocial stressors addressed through casework manager 9. Legal status: [facility] 10. Consider discharge next week if patient is in stable condition, safe, and has a safe discharge plan. 11. Substance abuse interventions: cannabis PSYCHOTROPIC MEDICATION TREATMENT INFORMED CONSENT and RECOMMENDATIONS: Review nature of condition, diagnosis, and prognosis. Review nature and purpose of psychotropic medication treatment. Review type of psychotropic medications being ordered. Review risk and benefits of psychotropic medication treatment. Review probable length of time patient will need to take medications. Review risk and benefits of not undergoing psychotropic medication treatment. Review alternative treatments to psychotropic medications. Review psychotropic medications contraindications, drug-drug interactions, side effects, and importance of reporting any side effects to a psychiatric provider or nurse during inpatient hospitalization, and upon discharge to patients psychiatric outpatient provider, primary care provider, or other health acute care clinical nurse specialist. Review importance of asking a nurse, psychiatric provider, or primary care provider any questions or problems concerning the psychotropic medications. Verify patient understands the information that has been provided, and understands, accepts, and agrees to psychotropic medications. Review patients safety plan and importance of patient to report to staff while hospitalized if patient is ever a danger to self/others, or unable to care for self, and upon discharge, the importance for patient to contact [facility] or [facility], or go to the nearest emergency room, if patient is ever a danger to self/others, or unable to care for self. Recommend that upon discharge patient establish medication management treatment with a psychiatric provider, establishes routine therapy appointments, and follow-up with primary care provider. Verify patient understands and agrees to these recommendations. 05/30/18 07:19 Subjective: Following up with patient for evaluation of psychosis and safety. Patient reports, "I get nervous talking to people about my problems. I have anxiety, depression now, maybe I have bipolar, I wasn't sleep much the days before I came here, I was sleeping about 2 hours per night for several nights, having lots of anxious thoughts, and one of them was a suicidal thought, and thought it was something worth paying attention to. No longer having suicidal thoughts , not since the day I got here." Patient reports using THC twice a day for 2-3 months, after she got a medical marijuana card. Patient states, "It's possible the reason I am here is due to using cannabis. Maybe triggered me into a more manic or depressive state." Patient expresses the following psychiatric symptoms anxious. Patient does not report undesirable side effects from current medications, and agrees to continue current medications. Patient agrees to increase Zyprexa Zydis to 10 mg po QHS. Objective: Vital Signs Temp Pulse Resp BP Pulse Ox 36.6 C 84 14 109/61 98 05/29/18 06:00 05/30/18 03:55 05/30/18 03:55 05/30/18 03:55 05/30/18 03:55 NURSING REPORT: Consulted with nursing for update on patients progress in treatment. Nurses report patient is not engaged in treatment, is not attending groups, slept 8 hours, expresses the following psychiatric symptoms: paranoia; exhibits the following psychiatric symptoms: paranoid, withdrawn, guarded, becomes extremely anxious when asked questions; is eating all meals, is agreeable to medications and taking as prescribed with no report of side effects , with no s/s of EPS/akathisia, and denies SI/HI, denies A/V hallucinations, and reports delusions. Patient requires prompting and direction from staff for ADLs and is unable to communicate her basic needs. MD REPORT FROM WEEKEND: paranoid, withdrawn, and guarded. MSE: The patient is a well-nourished female looking stated chronological age. Attire is appropriate and dress is casual. Grooming status is appropriate. Ambulation is independent. Gait is normal and coordinated. Posture is normal and relaxed. Eye contact is appropriate. Motor activity is appropriate with purposeful, organized, coordinated movements; with no involuntary movements. Attitude is uncooperative, at times guarded. Patient appears distracted and does not relate well to this interviewer. Language production is spontaneous. Rate is hesitant, latency of response is prolonged, monotone, with low volume. Patient reports mood as okay with incongruent and flat affect. Patients thought process is blocked, disorganized, nonsensical, illogical, and non- linear. Patient does not report suicidal/homicidal thoughts, ideas, or plans. Patient denies auditory, visual hallucinations. Patient reports paranoid delusions. Patient does not appear to be attending to internal stimuli. Patients attention and concentration are poor. Patient is oriented to person, place. Patients insight and judgment poor. SUBSTANCE ABUSE BRIEF INTERVENTION: Brief intervention regarding the risks of cannabis abuse is provided to patient with goal to reduce the risk of harm that could result from the continued use of cannabis, with the general aim to investigate the problem, raise awareness of problem, develop a solution with the patient, recommend a specific change or activity, and motivate the patient toward change. Assess substance abuse behavior and give supportive advice about harm reduction, recommend a reduction in hazardous/at-risk consumption patterns, and facilitate referrals for additional specialized treatment with lawn caretaker. Intermediate goal is for the patient to quit and attend outpatient substance abuse treatment. Intervention focus on intermediate goals to allow for more immediate success in the treatment process to keep the patient motivated. Review following with patient: Cannabis use risks: Short- term use: impaired short-term memory, impaired motor coordination, altered judgement, in high doses paranoia and psychosis. Long-term use addiction, diminished life satisfaction and achievement, symptoms of chronic bronchitis, and increased risk of chronic psychosis disorders if predisposition to such disorders. In withdrawal anger, aggression irritability, anxiety and nervousness, decreased appetite or weight loss, restlessness, and sleep difficulties with strange dreams. OUTPATIENT SUBSTANCE ABUSE TREATMENT: Patient referred to outpatient provider and treatment for continued treatment related to substance abuse. PATIENT'S RESPONSE TO INTERVENTION: "I can definitely handle not using weed if that is what is needed for me to get better." - Time Spent With Patient Time Spent With Patient: 15 minutes, met with patient individually. - Pending Discharge Pending Discharge Within 24 Hours: No Pending Discharge Within 48 Hours: Yes Pending Discharge Date: 06/01/18 Pending Discharge Time: 11:00 ICD10 Worksheet Patient Problems: Problems Problem Status Onset Cannabis use disorder, severe, dependence Acute Cannabis-induced psychotic disorder with delusions Acute Unspecified psychosis Acute
--- NOTE | 2018-05-30 08:45 | ASMTBHDC ---
Notes Note: Notes: CC confirmed follow up out-patient care: Follow up with: [facility] [address] [place] [address] Intake Appt: June 04 (06/04/18) at 2:30pm with Aishwarya at (the above address). Date Signed: 05/30/2018 08:44 AM Electronically Signed By:Trevor Colbert
[2018-05-30] MEDS: OLANZapine DISINTEGR 10 MG TAB PO SCH (20:34)
[2018-05-31] MEDS: IBUPROFEN 200 MG TAB PO PRN (04:25)
[2018-05-31] MEDS: LORazepam 0.5 MG TAB PO PRN (05:22)
[2018-05-31] MEDS: ACETAMINOPHEN 325 MG TAB PO PRN (05:23)
[2018-05-31] MEDS ORDERED: SUMAtriptan 50 MG TAB PO ONE (09:01)
--- NOTE | 2018-05-31 11:36 | SOAPPROG ---
SOAP Progress Note Assessment/Plan: Assessment: Cannabis Use Disorder, Severe. R/O substance induced psychosis, substance induced mood disorder. Improvement noted. (see subjective/objective note). Patient is not safe to discharge at this time as patient continues to exhibit signs of psychosis, and express psychosis symptoms. Patient requires continued inpatient care because of current psychosis, and requires inpatient level of care to stabilize in order to no longer be gravely disabled due to mental illness. Due to patients current, acute psychosis she is unable to communicate her basic needs and requires direction and prompting from staff to perform ADLs. Patient exhibits inability to provide for herself, neglecting self-care, withdrawn from social interactions, currently shows inability to maintain any appropriate aspect of personal responsibility as an adult, and no current support system for patient to manage functional impairment at lower level of care. Patient could benefit from continued inpatient hospitalization for crisis stabilization, safety, and medication evaluation. Plan: 1. Psychotropic medications: After reviewing options, risks, and benefits patient agrees to continue current medications. No medication changes at this time as more time is needed to determine ongoing tolerability and efficacy. Plan is to continue to observe patient for response and side effects from medications, and ongoing monitoring and evaluation. 2. Review with patient informed consent and recommendations for psychotropic medication treatment listed below 3. Labs: no additional labs at this time 4. Therapy: continue milieu and group therapy 5. Further investigation including gathering information from patients relatives and review of past case records to inform treatment plan. 6. Safety/Wellness plan and follow-up outpatient appointments to be established prior to discharge. Next steps are for patient to meet with healthcare educator to plan a safe discharge plan and establish outpatient services for ongoing treatment. 7. Confer with inpatient treatment team regarding treatment plan. 8. Psychosocial stressors addressed through pillowcase maker 9. Legal status: [facility] 10. Consider discharge Monday if patient is in stable condition, safe, and has a safe discharge plan. 11. Substance abuse interventions: cannabis PSYCHOTROPIC MEDICATION TREATMENT INFORMED CONSENT and RECOMMENDATIONS: Review nature of condition, diagnosis, and prognosis. Review nature and purpose of psychotropic medication treatment. Review type of psychotropic medications being ordered. Review risk and benefits of psychotropic medication treatment. Review probable length of time patient will need to take medications. Review risk and benefits of not undergoing psychotropic medication treatment. Review alternative treatments to psychotropic medications. Review psychotropic medications contraindications, drug-drug interactions, side effects, and importance of reporting any side effects to a psychiatric provider or nurse during inpatient hospitalization, and upon discharge to patients psychiatric outpatient provider, primary care provider, or other health medicare compliance auditor. Review importance of asking a nurse, psychiatric provider, or primary care provider any questions or problems concerning the psychotropic medications. Verify patient understands the information that has been provided, and understands, accepts, and agrees to psychotropic medications. Review patients safety plan and importance of patient to report to staff while hospitalized if patient is ever a danger to self/others, or unable to care for self, and upon discharge, the importance for patient to contact [facility] or [facility], or go to the nearest emergency room, if patient is ever a danger to self/others, or unable to care for self. Recommend that upon discharge patient establish medication management treatment with a psychiatric provider, establishes routine therapy appointments, and follow-up with primary care provider. Verify patient understands and agrees to these recommendations. 05/31/18 11:35 Subjective: Following up with patient for evaluation of psychosis and safety. Patient reports, "I feel much better, thinking more clearly." Patient expresses the following psychiatric symptoms anxiety. Patient does not report undesirable side effects from current medications, and agrees to continue current medications. Objective: Vital Signs Temp Pulse Resp BP Pulse Ox 37.6 C 95 16 93/60 L 97 05/31/18 06:00 05/31/18 06:00 05/31/18 06:00 05/31/18 06:00 05/31/18 06:00 NURSING REPORT: Consulted with nursing for update on patients progress in treatment. Nurses report patient is not engaged in treatment, is not attending groups, slept 8 hours, expresses the following psychiatric symptoms: paranoia; exhibits the following psychiatric symptoms: paranoid, withdrawn, guarded, becomes extremely anxious when asked questions; is eating all meals, is agreeable to medications and taking as prescribed with no report of side effects , with no s/s of EPS/akathisia, and denies SI/HI, denies A/V hallucinations, and reports delusions. Patient requires prompting and direction from staff for ADLs and is unable to communicate her basic needs. MSE: The patient is a well-nourished female looking stated chronological age. Attire is appropriate and dress is casual. Grooming status is appropriate. Ambulation is independent. Gait is normal and coordinated. Posture is normal and relaxed. Eye contact is appropriate. Motor activity is appropriate with purposeful, organized, coordinated movements; with no involuntary movements. Attitude is uncooperative, at times guarded. Patient appears distracted and does not relate well to this interviewer. Language production is spontaneous. Rate is hesitant, latency of response is prolonged, monotone, with low volume. Patient reports mood as okay with incongruent and flat affect. Patients thought process is blocked, disorganized, nonsensical, illogical, and non- linear. Patient does not report suicidal/homicidal thoughts, ideas, or plans. Patient denies auditory, visual hallucinations. Patient reports paranoid delusions. Patient does not appear to be attending to internal stimuli. Patients attention and concentration are poor. Patient is oriented to person, place. Patients insight and judgment poor. SUBSTANCE ABUSE BRIEF INTERVENTION: Brief intervention regarding the risks of cannabis abuse is provided to patient with goal to reduce the risk of harm that could result from the continued use of cannabis, with the general aim to investigate the problem, raise awareness of problem, develop a solution with the patient, recommend a specific change or activity, and motivate the patient toward change. Assess substance abuse behavior and give supportive advice about harm reduction, recommend a reduction in hazardous/at-risk consumption patterns, and facilitate referrals for additional specialized treatment with healthcare translator. Intermediate goal is for the patient to quit and attend outpatient substance abuse treatment. Intervention focus on intermediate goals to allow for more immediate success in the treatment process to keep the patient motivated. Review following with patient: Cannabis use risks: Short- term use: impaired short-term memory, impaired motor coordination, altered judgement, in high doses paranoia and psychosis. Long-term use addiction, diminished life satisfaction and achievement, symptoms of chronic bronchitis, and increased risk of chronic psychosis disorders if predisposition to such disorders. In withdrawal anger, aggression irritability, anxiety and nervousness, decreased appetite or weight loss, restlessness, and sleep difficulties with strange dreams. OUTPATIENT SUBSTANCE ABUSE TREATMENT: Patient referred to outpatient provider and treatment for continued treatment related to substance abuse. - Time Spent With Patient Time Spent With Patient: 15 minutes, met with patient individually. 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
[2018-05-31] MEDS: OLANZapine DISINTEGR 10 MG TAB PO SCH (20:08)
[2018-06-01] MEDS: ACETAMINOPHEN 325 MG TAB PO PRN (04:26)
[2018-06-01 06:54] VITALS: BP 99/68
--- NOTE | 2018-06-01 11:51 | BDS ---
REASON FOR ADMISSION: From the ED note dated 05/25/2018, patient presents to the emergency room by private vehicle with a friend. Friend became concerned about the patient's possible meli. Patient denied history of bipolar disorder , however, reported a history of depression. The patient did report being suicidal a day prior to presenting to the emergency department but reported no suicidality upon presentation to the ED on 05/25/2018. The patient's friend reported patient had been exhibiting bizarre behavior, including deleting her Facebook account 7 times over the last 24 hours and also reported delusion of "Linda Carbajal had became friends with her." The patient presented, smiling and laughing, with pressured speech and appeared to be acutely manic at time of presenting to the emergency room. Patient reported being paranoid, pressured speech and reported doing odd behaviors prior to presenting to the emergency room. Patient was admitted involuntarily on an M1 hold due to being gravely disabled due to a mental illness. Patient was admitted for safety, crisis stabilization, and medication management. ADMITTING DIAGNOSES: 1. Unspecified psychosis. 2. Cannabis use disorder, severe dependence. 3. Cannabis-induced psychotic disorder with delusions. ADMISSION PHYSICAL EXAM: Patient was seen for an Internal Medicine consultation on 05/25/2018, for medical clearance for inpatient psychiatric hospitalization and treatment. Patient was medically cleared for inpatient psychiatric hospitalization and treatment. For further details, please refer to product safety consultant note dated 05/25/2018. ADMISSION LABS: 1. CBC from 05/25/2018, within normal limits, except eosinophils were low at 0.3. Absolute eosinophils were low at 0.02. 2. BMP from 05/25/2018, within normal limits, except carbon dioxide was low at 20. BUN was low at 5. 3. Hemoglobin A1c from 05/25/2018, within normal limits at 5.2. 4. Liver function from 05/25/2018, within normal limits. 5. Lipid panel from 05/25/2018, within normal limits, except cholesterol was low at 109. LDL cholesterol calculated was low at 50. Non-HDL cholesterol was low at 61. 6. TSH from 05/25/2018, within normal limits at 1.450. 7. Beta hCG qualitative test from 05/25/2018, negative. 8. Toxicology screen from 05/25/2018, non-negative for THC, negative for all other substances screened, and negative for ethyl alcohol. MAJOR PROCEDURES OR TESTS: Electrocardiogram on 05/28/2018: Sinus rhythm, borderline right axis deviation, minimal ST depression, inferior leads. QTc interval 435 milliseconds. For further details, please refer to EKG report dated 05/28/2018. HOSPITAL COURSE: Most prominent symptoms and behaviors while the patient was here were disorganized behavior and thought process. The patient's thought process also nonlinear, illogical. Patient was extremely anxious, agitated. Patient's sleep was poor upon admission, only sleeping 2 or 3 hours per night. Treatment modalities utilized were milieu and group therapy. Zyprexa Zydis 5 mg p.o. q.h.s. was started and titrated to 10 mg p.o. q.h.s. to target psychosis symptoms, was tolerated with no report of side effects and with good response. The patient reported an increased use of cannabis prior to admission , and the patient reported an association with her odd behaviors and increased use of cannabis. The patient has improved considerably, with no signs of psychiatric symptoms and no psychiatric symptoms expressed at time of discharge. Patient reports she has improved since admission, states to be in stable condition, feels safe to discharge, and she contracts for safety. Patient's response to treatment was good. There were no adverse or unexpected results of treatment. The patient was safe throughout her stay, active in treatment, engaged in groups, and was appropriate with staff and other patients. The patient met with the treatment team prior to discharge to assess readiness to discharge and review discharge plan. The treatment team consensus is the patient is in stable condition, has a safe discharge plan, and is ready to discharge today. CONDITION ON DISCHARGE: Patient is in stable condition and is no longer a danger to self or others, and is not gravely disabled due to mental illness. Patient is no longer in need of inpatient level of care, and can be safely and effectively treated within the community. The patients level of risk at time of discharge is low. MSE: The patient is casually dressed and with good hygiene , and looks stated age. Patient is sitting, posture is upright, and position is relaxed. Patient appears awake, alert, and responds appropriately and reasonably during interview. Patient is engaged, relates well to interviewer, and emotional facial expression is appropriate to situation and changes appropriately with topic. Patient is cooperative, makes comfortable eye contact , and movements are voluntary, deliberate, coordinated, and smooth and even with no inappropriate movements. Patient makes laryngeal sounds effortlessly and shares conversation appropriately; pace of conversation is appropriate, and stream of talking is fluent; articulation is clear and understandable; word choice is effortless and appropriate for education level; completes sentences, occasionally pausing to think; rate and volume are appropriate for interview and setting. Patient reports mood as euthymic. Patients affect is stable with full variable range, congruent with mood, and appropriate to speech and circumstances. Patient has linear and logical thinking, with no loose associations, tangential thought, thought blocking, concrete thinking, or any other signs of formal thought disorder. Patient denies suicidal and homicidal ideation, and denies hallucinations and delusions. Patient appears to be a reliable historian with sound judgement and good insight into current condition. Patient has no apparent dysfunction in recent or remote memory noted , and no evidence of gross cognitive dysfunction noted at any point during the interview. DISCHARGE DIAGNOSES: 1. Unspecified psychosis. 2. Cannabis use disorder, severe dependence. 3. Cannabis-induced psychotic disorder with delusions. CURRENT MEDICATIONS: After reviewing options, risks and benefits with the patient, patient agrees to continue Zyprexa 10 mg p.o. q.h.s. The patient requests a prescription for this medication at time of discharge. Prescription for 30 days is provided. Prescription is reviewed with the patient at time of discharge to ensure accuracy and patient understanding. DISPOSITION: Patient left the hospital independently and voluntarily and plans to return to her apartment in [place]. FOLLOWUP: warehouse coordinator reports the appropriate outpatient follow-up services have been established and outpatient appointments have been scheduled. The patient received written instructions with times and dates of outpatient follow-up appointments. The following follow-up recommendations were provided to the patient at discharge: Continue psychotropic medications as prescribed and attend appointments as scheduled. Report any side effects to a psychiatric outpatient provider, a primary care provider, or other health residential child care counselor. Address any questions or problems concerning the psychotropic medications with a psychiatric outpatient provider, a primary care provider, or other health residential child care counselor. Contact [facility] or [facility], or go to the nearest emergency room, if you are ever a danger to yourself/others, or unable to care for yourself. As soon as possible, establish a routine medication management treatment with a psychiatric provider, establish routine therapy appointments, and follow-up with a primary care provider. LEGAL COURSE: The patient was admitted on an M1 hold for involuntary inpatient psychiatric hospitalization. The patient was placed on a short-term certification during the course of her hospitalization, and patient was discharged today independently and voluntarily. Short-term certification was terminated at time of discharge. ATTITUDE AT TIME OF DISCHARGE: The patients attitude was positive at time of discharge, and patient reports looking forward to discharging today. The patient reports she feels safe to discharge, is no longer a danger to herself or others, is in stable condition, and contracts for safety. Patient states she will continue medications as prescribed, and establish medication management treatment with an outpatient provider after discharge. Patient reports she understands the information that has been provided to her, and she understands, accepts, and agrees to psychotropic medications. Patient describes internal protective factors as the coping skills she has learned while hospitalized here, and she plans to continue to practice these coping skills after discharge. LABS AND STUDIES: There were no pending labs or studies at time of discharge. ADVANCE DIRECTIVES: There were no advance directives on file, and patient was full code during this hospitalization. The following psychotropic medication treatment informed consent and recommendations were provided to the patient at time of discharge. Patient reports she understands, accepts, and agrees to the information that has been provided. PSYCHOTROPIC MEDICATION TREATMENT INFORMED CONSENT and RECOMMENDATIONS: Review nature of condition, diagnosis, and prognosis. Review nature and purpose of psychotropic medication treatment. Review type of psychotropic medications being prescribed. Review risk and benefits of psychotropic medication treatment. Review probable length of time will need to take medications. Review risk and benefits of not undergoing psychotropic medication treatment. Review alternative treatments to psychotropic medications. Review psychotropic medications contraindications, side effects, and importance of reporting any side effects to a psychiatric provider, primary care provider, or other health residential child care counselor. Review importance of her asking a psychiatric provider or primary care provider any questions or problems concerning the psychotropic medications. Review importance of reporting to a psychiatric provider, primary care provider, or other health residential child care counselor if she plans to or becomes . Review safety plan and the importance to contact [facility] or 1 , or go to the nearest emergency room, if ever a danger to yourself/others, or unable to care for yourself. Recommend upon discharge to establish routine medication management treatment with a psychiatric provider, establish routine therapy appointments, and follow-up with a primary care provider. Verify patient understands, accepts, and agrees to the information that has been provided. /[id number]/MODL MTDD
--- NOTE | 2018-06-01 12:44 | ASMTCMCOM ---
CM Note CM Note Notes: Ct. is being discharged today. CC checked in with ct. who reported that she is doing fine and is ready for discharge. Ct. has a follow up appointment with [facility] next week. Date Signed: 06/01/2018 12:43 PM Electronically Signed By:Melony Singh
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
== END 2018-06-01 12:55 | disposition home or self-care (01) | DRG 885 ==
LOC: BBEH 13:10
PROVIDERS: ADMIT Registered Nurse; ATTEND Registered Nurse
DX: F29 Unspecified psychosis not due to a substance or known physiological condition (principal); F12.250 Cannabis dependence with psychotic disorder with delusions
CPT/HCPCS: 80305; G0480

== ENCOUNTER 2018-05-28 12:40 | Emergency (ER) | payer MEDICAID ==
--- NOTE | 2018-05-28 12:57 | EDPHY ---
H & P Stated Complaint: sent from [facility] for not eating/drinking Time Seen by Provider: 05/28/18 12:57 - Medical/Surgical History Hx Asthma: No Hx Chronic Respiratory Disease: No Hx Diabetes: No Hx Cardiac Disease: No Hx Renal Disease: No Hx Cirrhosis: No Hx Alcoholism: No Hx HIV/AIDS: No Hx Splenectomy or Spleen Trauma: No Other PMH: TMJ, sleep apnea, anal fissure, anxiety - Social History Smoking Status: Never smoked Constitutional: Initial Vital Signs Temperature (C) 36.8 C 05/28/18 12:54 Heart Rate 90 05/28/18 12:54 Respiratory Rate 18 05/28/18 12:54 Blood Pressure 125/70 H 05/28/18 12:54 O2 Sat (%) 97 05/28/18 12:54 O2 Delivery Mode Room Air Allergies/Adverse Reactions: No Known Allergies Allergy (Verified 05/25/18 03:03) Home Medications: Medication Instructions Recorded Cyclobenzaprine [Flexeril 10 MG 10 mg PO HS PRN 05/25/18 (*)] Propranolol HCl [Inderal 20mg (*)] 20 - 40 mg PO DAILY PRN 05/25/18 Sertraline HCl [Zoloft 50mg (*)] 50 mg PO DAILY 05/25/18 Medical Decision Making ED Course/Re-evaluation: CHIEF COMPLAINT: [facility] concerned she is not eating HISTORY OF PRESENT ILLNESS: The patient is a 27 y/o female with psychiatric history on a certified hold who arrives from [facility] behavioral health due to concern she is not eating. The patient thinks this is sometimes and issue for her, but feels it is improving. She has thus far refused an IV, but says she is "willing to do what I need to do to get better." She does feel hungry. She has no specific complaints. REVIEW OF SYSTEMS: A comprehensive 10 system review of systems is otherwise negative aside from elements mentioned in the history of present illness and medical decision making. PHYSICAL EXAM: HR, BP, O2 Sat, RR. Temp noted General Appearance: Alert, well hydrated, appropriate, and non-toxic appearing. Head: Atraumatic without scalp tenderness or obvious injury Eyes: Pupils equal, round, reactive to light and accommodation, EOMI, no trauma , no injection. Nose: Atraumatic, no rhinorrhea, clear. Throat: Mucus membranes moist. Neck: Supple, nontender, no lymphadenopathy. Respiratory: No retractions, no distress, no wheezes, and no accessory muscle use. Lungs are clear to auscultation bilaterally. Cardiovascular: Regular rate and rhythm, no murmurs, rubs, or gallops. Good capillary refill all extremities. Gastrointestinal: Abdomen is soft, nontender, non-distended, no masses, no rebound, no guarding, no peritoneal signs. Musculoskeletal: Normal active ROM of all extremities, atraumatic. Neurological: Alert, appropriate, and interactive. The patient has non-focal cranial nerves, motor, sensory, and cerebellar exam. Skin: No rashes, good turgor, no nodules on palpation. Past medical history: Psychiatric history Past surgical history: Noncontributory Family history: Noncontributory Social history: Resides at [address] [place] [address]. DIFFERENTIAL DIAGNOSIS: The differential diagnosis included but was not limited to psychiatric illness. MEDICAL DECISION MAKING: This is a 27 y/o female on a certified mental health hold arriving to the ED asymptomatic because staff at [facility] is concerned she isn't eating. The patient says this is sometimes an issue for her, but is improving. She has no acute complaints. She is medically clear and can return to [facility] for further management of her psychiatric issues. Departure - Departure Disposition: [facility] IP Clinical Impression: Psychiatric diagnosis Condition: Good Referrals: Tita Velez DO [Primary Care Provider] - As per Instructions Report Scribed for: Mekhi Pickens Report Scribed by: Anika Le Date of Report: 05/28/18 Time of Report: 14:09
--- NOTE | 2018-05-28 14:50 | CPEKG ---
Test Reason : OPEN Blood Pressure : / mmHG Vent. Rate : 092 BPM Atrial Rate : 093 BPM P-R Int : 131 ms QRS Dur : 088 ms QT Int : 351 ms P-R-T Axes : 086 090 039 degrees QTc Int : 435 ms Sinus rhythm Borderline right axis deviation Minimal ST depression, inferior leads Confirmed by Mekhi Pickens ([id number]) on 05/28/2018 2:50:11 PM Referred By: Confirmed By:Mekhi Pickens
[2018-05-28 15:42] VITALS: BP 118/76
== END 2018-05-28 15:40 ==
LOC: EDUNIT# → EEVIPCON 12:40
DX: F99 Mental disorder, not otherwise specified (principal); F50.9 Eating disorder, unspecified